=== PATIENT | male | born 1955 | race Caucasian/White ===

== ENCOUNTER → 2018-04-18 | Outpatient (CLI) | payer BC, OTHER | END | disposition home or self-care (01) | LOC: HKI 10:46 | DX: Z47.89 Encounter for other orthopedic aftercare (principal); Z96.642 Presence of left artificial hip joint | CPT/HCPCS: 73502 ==

== ENCOUNTER → 2018-05-02 | Outpatient (CLI) | payer BC | END | disposition home or self-care (01) | LOC: HKI 11:27 | DX: M25.552 Pain in left hip (principal) | CPT/HCPCS: G0463 ==

== ENCOUNTER → 2018-06-13 | Outpatient (CLI) | payer BC | END | disposition home or self-care (01) | LOC: LAB 08:00 | DX: Z01.818 Encounter for other preprocedural examination (principal) | CPT/HCPCS: 87081 ==

== ENCOUNTER 2018-06-30 09:33 | Inpatient (IN) | payer BC ==
[~2018-06-30 09:33] MED LIST: DEXAMETHASONE 4 MG/ML 1 ML INJ; ONDANSETRON 4 MG INJ; ROCURONIUM 50 MG INJ
[2018-06-30] MEDS: DEXAMETHASONE 4 MG/ML 1 ML INJ IV (10:54)
[2018-06-30] MEDS: ACETAMINOPHEN 500 MG TAB PO (10:55)
[2018-06-30] MEDS: LACTATED RINGER'S 1,000 ML IV ×2 (11:00→19:00)
[2018-06-30] MEDS: CEFAZOLIN 2 GM/50 ML (PMX) 50 ML (FOR WT < 120 KG) IVPB (11:30)
[2018-06-30 11:35] LABS: INR 1.06; PROTIME 13.9 Sec (11.9-14.9); PT RATIO 1.1
[2018-06-30 11:36] LABS: PARTIAL THROMBOPLASTIN TIME 27.6 Sec (23.0-35.0)
[2018-06-30] MEDS: TRANEXAMIC ACID 1,000 MG in D5W 100 ML AT INCISION X1 IVPB (12:30)
[2018-06-30] MEDS ORDERED: MIDAZOLAM 1 MG/ML 2 ML INJ (12:44)
[2018-06-30] MEDS ORDERED: FENTAnyl 50 MCG/ML VIAL (12:45)
[2018-06-30] MEDS ORDERED: PROPOFOL 20 ML (12:49)
[2018-06-30] MEDS ORDERED: LIDOCAINE 2% (SDV) 5 ML INJ (12:49)
[2018-06-30] MEDS ORDERED: CEFAZOLIN 1 GM INJ (12:50)
[2018-06-30] MEDS ORDERED: EPINEPHrine 1 MG INJ (12:50)
[2018-06-30] MEDS ORDERED: MAGNESIUM HYDROXIDE 30ML CUP PO (14:00)
[2018-06-30] MEDS ORDERED: SENNA/DOCUSATE NA (8.6MG/50MG) TAB PO (14:00)
[2018-06-30] MEDS ORDERED: BISACODYL 10 MG SUPP PR (14:00)
[2018-06-30] MEDS ORDERED: oxyCODONE 5 MG TAB PO ×2 (14:00)
[2018-06-30] MEDS ORDERED: NALOXONE (0.4 MG/ML) INJ IV (14:00)
[2018-06-30] MEDS ORDERED: NA PHOSPHATE/BIPHOS 133 ML ENEMA PR (14:00)
[2018-06-30] MEDS ORDERED: NACL 0.9% 3 ML SYG IV (14:00)
[2018-06-30] MEDS ORDERED: DIPHENHYDRAMINE 50 MG INJ IV ×2 (14:00→18:00)
[2018-06-30] MEDS: BACITRACIN 50000 UNITS INJ (14:25)
[2018-06-30] MEDS: TRANEXAMIC ACID 1,000 MG in D5W 100 ML AT CLOSURE X1 IVPB (15:00)
[2018-06-30] MEDS: POLYMYXIN B 500000 UNIT INJ (15:07)
[2018-06-30] MEDS ORDERED: NEOSTIGMINE 3 MG/3 ML SYRINGE (15:25)
[2018-06-30] MEDS ORDERED: GLYCOPYRROLATE 0.4 MG INJ (15:25)
[2018-06-30] MEDS: CEFAZOLIN 2 GM/50 ML (PMX) 50 ML IVPB ×2 (17:04→22:53)
[2018-06-30] MEDS: DOCUSATE SODIUM 100 MG CAP PO (17:06)
[2018-06-30] MEDS ORDERED: OXYCODONE/ACETAMINOPHEN (5/325) TAB PO ×2 (18:00)
[2018-06-30] MEDS ORDERED: HYDROmorphONE 1 MG/5 ML IV SYRINGE IV ×3 (18:00)
[2018-06-30] MEDS ORDERED: EPHEDrine SULFATE 50 MG/5 ML SYG IV (18:00)
[2018-06-30] MEDS ORDERED: ONDANSETRON 4 MG INJ IV (18:00)
[2018-06-30] MEDS ORDERED: MEPERIDINE 25 MG INJ IV (18:00)
[2018-06-30] MEDS ORDERED: KETOROLAC 30 MG INJ IV (18:00)
[2018-06-30] MEDS ORDERED: METOCLOPRAMIDE 10 MG INJ IV (18:00)
[2018-06-30] MEDS ORDERED: LABETALOL HCL 20MG INJ IV (18:00)
[2018-06-30] MEDS ORDERED: ALBUTEROL 0.083% (NEB) 2.5 MG/3 ML AMP HHN (18:00)
[2018-06-30] MEDS ORDERED: hydrALAzine 20 MG INJ IV (18:00)
[2018-06-30] MEDS: WARFARIN 5 MG TAB PO (19:44)
[2018-06-30] MEDS: SOD CHLORIDE 0.9% 1,000 ML IV (19:44)
[2018-06-30] MEDS ORDERED: ENOXAPARIN 100 MG/ML SYG (20:53)
[2018-06-30] MEDS ORDERED: ENOXAPARIN 30 MG/0.3 ML SYG SC (21:00)
[2018-06-30] MEDS: GABAPENTIN 100 MG CAP PO (21:07)
[2018-06-30] MEDS: ATORVASTATIN 10 MG TAB PO (21:07)
[2018-06-30] MEDS: oxyCODONE 5 MG TAB PO (21:07)
[2018-06-30] MEDS: BETHANECHOL 25 MG TAB PO (22:52)
[2018-06-30] MEDS: ENOXAPARIN 100 MG/ML SYG SC (23:00)
[2018-07-01] MEDS: oxyCODONE 5 MG TAB PO ×2 (01:58→12:11)
[2018-07-01] MEDS: SOD CHLORIDE 0.9% 1,000 ML IV ×2 (01:58→14:40)
[2018-07-01] MEDS: LACTATED RINGER'S 1,000 ML IV ×3 (03:00→19:00)
[2018-07-01] MEDS: PANTOPRAZOLE (EC) 40 MG TAB PO (05:17)
[2018-07-01] MEDS: CEFAZOLIN 2 GM/50 ML (PMX) 50 ML IVPB (05:17)
[2018-07-01 05:42] LABS: ADD MAN DIFF? NO
[2018-07-01 05:57] LABS: HEMATOCRIT 32.3 % (42.0-52.0); HEMOGLOBIN 11.5 g/dl (14.0-18.0); LYMPHOCYTES # 0.8 10^3/ul (0.8-2.9); LYMPHOCYTES % 8.1 % (15.0-51.0); MEAN CORPUSCULAR HEMOGLOBIN 33.4 pg (29.0-33.0); MEAN CORPUSCULAR HGB CONC 35.6 g/dl (32.0-37.0); MEAN CORPUSCULAR VOLUME 93.9 fl (82.0-101.0); MEAN PLATELET VOLUME 10.6 fl (7.4-10.4); MONOCYTE # 0.7 10^3/ul (0.3-0.9); MONOCYTES % 6.7 % (0.0-11.0); NEUTROPHIL # 8.6 10^3/ul (1.6-7.5); NEUTROPHILS % 84.8 % (39.0-77.0); PLATELET COUNT 204 10^3/UL (140-415); RED BLOOD COUNT 3.44 10^6/ul (4.70-6.10); RED CELL DISTRIBUTION WIDTH 11.9 % (11.5-14.5)
[2018-07-01 05:57] LABS: WHITE BLOOD COUNT 10.2 10^3/ul (4.8-10.8)
[2018-07-01 06:07] LABS: INR 1.23; PROTIME 15.7 Sec (11.9-14.9); PT RATIO 1.2
[2018-07-01 06:08] LABS: PARTIAL THROMBOPLASTIN TIME 30.3 Sec (23.0-35.0)
[2018-07-01 06:19] LABS: ANION GAP 10 (5-13); BLOOD UREA NITROGEN 17 mg/dl (7-20); CALCIUM 8.7 mg/dl (8.4-10.2); CARBON DIOXIDE 24 mmol/L (21-31); CHLORIDE 103 mmol/L (97-110); CREATININE 0.95 mg/dl (0.61-1.24); Estimated GFR > 60 mL/min (>60); GLUCOSE 122 mg/dl (70-220); POTASSIUM 4.2 mmol/L (3.5-5.1); SODIUM 137 mmol/L (135-144)
[2018-07-01] MEDS: DOCUSATE SODIUM 100 MG CAP PO ×2 (09:25→20:17)
[2018-07-01] MEDS: CELECOXIB 100 MG CAP PO ×2 (09:25→20:17)
[2018-07-01] MEDS: GABAPENTIN 100 MG CAP PO ×3 (09:26→20:18)
[2018-07-01] MEDS: HYDROCHLOROTHIAZIDE 25 MG TAB PO (09:27)
[2018-07-01] MEDS: LISINOPRIL 20 MG TAB PO (09:27)
[2018-07-01] MEDS: ENOXAPARIN 100 MG/ML SYG SC ×2 (09:31→20:19)
[2018-07-01] MEDS ORDERED: ONDANSETRON 4 MG INJ IV (14:00)
[2018-07-01] MEDS: TAMSULOSIN (SR) 0.4 MG CAP PO ×2 (15:01→20:17)
[2018-07-01 16:55] LABS: ADD UMIC YES; UR ASCORBIC ACID NEGATIVE (NEGATIVE); UR BILIRUBIN (Dip) NEGATIVE (NEGATIVE); UR BLOOD (Dip) 2+ mg/dL (NEGATIVE); UR CLARITY CLEAR (CLEAR); UR COLOR STRAW (YELLOW); UR GLUCOSE (Dip) NEGATIVE (NEGATIVE); UR KETONES (Dip) NEGATIVE (NEGATIVE); UR LEUKOCYTE ESTERASE (Dip) NEGATIVE Leu/ul (NEGATIVE); UR NITRITE (Dip) NEGATIVE (NEGATIVE); UR RBC 1 /HPF (0-5); UR SPECIFIC GRAVITY (Dip) 1.006 (1.003-1.030); UR TOTAL PROTEIN (Dip) NEGATIVE (NEGATIVE); UR UROBILINOGEN (Dip) NEGATIVE (NEGATIVE); UR WBC 1 /HPF (0-5)
[2018-07-01] MEDS: WARFARIN 5 MG TAB PO (17:15)
[2018-07-01] MEDS: ATORVASTATIN 10 MG TAB PO (20:17)
[2018-07-02] MEDS: LACTATED RINGER'S 1,000 ML IV ×2 (03:00→11:00)
[2018-07-02] MEDS: SOD CHLORIDE 0.9% 1,000 ML IV (03:08)
[2018-07-02 05:28] LABS: ADD MAN DIFF? NO
[2018-07-02 05:31] LABS: WHITE BLOOD COUNT 6.3 10^3/ul (4.8-10.8)
[2018-07-02 05:31] LABS: BASOPHILS % 0.5 % (0.0-2.0); EOSINOPHILS # 0.2 10^3/ul (0.0-0.5); EOSINOPHILS % 2.4 % (0.0-7.0); HEMATOCRIT 28.9 % (42.0-52.0); LYMPHOCYTES # 1.3 10^3/ul (0.8-2.9); LYMPHOCYTES % 20.1 % (15.0-51.0); MEAN CORPUSCULAR HEMOGLOBIN 33.4 pg (29.0-33.0); MEAN CORPUSCULAR HGB CONC 34.6 g/dl (32.0-37.0); MEAN CORPUSCULAR VOLUME 96.7 fl (82.0-101.0); MEAN PLATELET VOLUME 10.3 fl (7.4-10.4); MONOCYTE # 0.5 10^3/ul (0.3-0.9); MONOCYTES % 8.6 % (0.0-11.0); NEUTROPHIL # 4.3 10^3/ul (1.6-7.5); NEUTROPHILS % 68.1 % (39.0-77.0); PLATELET COUNT 163 10^3/UL (140-415); RED BLOOD COUNT 2.99 10^6/ul (4.70-6.10); RED CELL DISTRIBUTION WIDTH 12.4 % (11.5-14.5)
[2018-07-02 05:48] LABS: INR 1.25; PROTIME 15.9 Sec (11.9-14.9); PT RATIO 1.2
[2018-07-02 05:49] LABS: PARTIAL THROMBOPLASTIN TIME 33.5 Sec (23.0-35.0)
[2018-07-02 06:03] LABS: ANION GAP 7 (5-13); BLOOD UREA NITROGEN 16 mg/dl (7-20); CALCIUM 8.5 mg/dl (8.4-10.2); CARBON DIOXIDE 28 mmol/L (21-31); CHLORIDE 103 mmol/L (97-110); CREATININE 1.05 mg/dl (0.61-1.24); Estimated GFR > 60 mL/min (>60); GLUCOSE 108 mg/dl (70-220); POTASSIUM 4.1 mmol/L (3.5-5.1); SODIUM 138 mmol/L (135-144)
[2018-07-02] MEDS: PANTOPRAZOLE (EC) 40 MG TAB PO ×2 (06:37→06:38)
[2018-07-02] MEDS: GABAPENTIN 100 MG CAP PO ×2 (08:48→15:42)
[2018-07-02] MEDS: LISINOPRIL 20 MG TAB PO (08:48)
[2018-07-02] MEDS: CELECOXIB 100 MG CAP PO (08:48)
[2018-07-02] MEDS: HYDROCHLOROTHIAZIDE 25 MG TAB PO (08:48)
[2018-07-02] MEDS: DOCUSATE SODIUM 100 MG CAP PO (08:48)
[2018-07-02] MEDS: ENOXAPARIN 100 MG/ML SYG SC (08:52)
== END 2018-07-02 16:20 | disposition home health service (06) | DRG 467 ==
LOC: REC 09:33 → MS1 17:40
PROC: 0SRB04A Replacement of Left Hip Joint with Ceramic on Polyethylene Synthetic Substitute, Uncemented, Open Approach (ICD-10-PCS; principal; 2018-06-30 12:30)
PROC: 0SPB0JZ Removal of Synthetic Substitute from Left Hip Joint, Open Approach (ICD-10-PCS; 2018-06-30 12:30)
DX: T84.091A Other mechanical complication of internal left hip prosthesis, initial encounter (principal); D68.51 Activated protein C resistance; Z96.642 Presence of left artificial hip joint; I10 Essential (primary) hypertension; E78.5 Hyperlipidemia, unspecified; N40.1 Benign prostatic hyperplasia with lower urinary tract symptoms; R33.8 Other retention of urine; J30.1 Allergic rhinitis due to pollen; I83.93 Asymptomatic varicose veins of bilateral lower extremities; Y83.8 Other surgical procedures as the cause of abnormal reaction of the patient, or of later complication, without mention of misadventure at the time of the procedure; Z79.01 Long term (current) use of anticoagulants; Y92.019 Unspecified place in single-family (private) house as the place of occurrence of the external cause; Z86.718 Personal history of other venous thrombosis and embolism
CPT/HCPCS: 73530; 80048; 81001; 85025; 85610; 85730; 86850; 86860; 86870; 86880; 86900; 86901; 86971; 86978; 87070; 87086; 88300; 97116; 97162; 97167; 97530

== ENCOUNTER → 2018-07-15 | Outpatient (CLI) | payer BC | END | disposition home or self-care (01) | LOC: HKI 13:16 | DX: Z47.1 Aftercare following joint replacement surgery (principal); Z96.642 Presence of left artificial hip joint | CPT/HCPCS: 73502 ==

== ENCOUNTER → 2018-08-08 | Outpatient (CLI) | payer BC | END | disposition home or self-care (01) | LOC: HKI 10:30 | DX: Z09 Encounter for follow-up examination after completed treatment for conditions other than malignant neoplasm (principal); Z96.642 Presence of left artificial hip joint | CPT/HCPCS: 73502 ==